=== PATIENT | female | born 1995 | race Caucasian/White ===

== ENCOUNTER 2023-02-24 06:13 | Inpatient (IN) | payer OTHER, SELFPAY ==
[2023-02-24] VITALS (47 sets, daily range): BP systolic 104–186; BP diastolic 55–120; PULSE 76–162; RESP 16–18; TEMP 36.4–37.2
[2023-02-24 07:21] LABS: Basophils Percent Auto 0.4 % (0.2-2.0); Eosinophils Absolute Auto 0.4 10^3/uL (0.0-0.7); Eosinophils Percent Auto 3.1 % (0.9-7.0); Hematocrit 35.5 % (36.0-48.0); Immature Granulocytes Abs Auto 0.06 10^3/uL (0.00-0.03); Immature Granulocytes Pct Auto 0.5 % (0.0-0.5); Lymphocytes Absolute Auto 2.4 10^3/uL (1.2-3.8); Lymphocytes Percent Auto 21.1 % (20.5-60.0); Mean Corpuscular HGB Conc 33.8 g/dL (29.9-35.2); Mean Corpuscular Hemoglobin 32.1 pg (26.7-34.0); Mean Corpuscular Volume 94.9 fL (81.0-99.0); Mean Platelet Volume 10.4 fL (9.5-13.5); Monocytes Absolute Auto 0.9 10^3/uL (0.3-0.8); Monocytes Percent Auto 7.5 % (1.7-12.0); Neutrophils Absolute Auto 7.7 10^3/uL (1.4-6.5); Neutrophils Percent Auto 67.4 % (43.0-75.0); Platelet Count 307 10^3/uL (150-450); Red Blood Count 3.74 10^6/uL (4.20-5.40); Red Cell Distribution Width 12.8 % (11.0-15.0); White Blood Count 11.4 10^3/uL (4.0-11.0)
[2023-02-24] MEDS: OXYTOCIN/0.9 % SODIUM CHLORIDE 10 UNITS/500 ML PLAST..BAG 6 UNIT IV ×2 (07:32→18:41)
[2023-02-24] MEDS: LACTATED RINGER'S SOLUTION 1,000 ML 125 ML IV ×4 (07:34→16:47)
[2023-02-24 07:37] LABS: Amphetamine Screen Urine NEGATIVE (NEGATIVE); Barbiturates Screen Urine NEGATIVE (NEGATIVE); Benzodiazepines Screen Urine NEGATIVE (NEGATIVE); Buprenorphine Screen Urine NEGATIVE (NEGATIVE); Cannabinoid Screen Urine NEGATIVE (NEGATIVE); Cocaine Screen Urine NEGATIVE (NEGATIVE); Methadone Screen Urine NEGATIVE (NEGATIVE); Methamphetamines Screen Urine NEGATIVE (NEGATIVE); Opiate Screen Urine NEGATIVE (NEGATIVE); Oxycodone Screen Urine NEGATIVE (NEGATIVE); Phencyclidine Screen Urine NEGATIVE (NEGATIVE); Tricyclic Antidepressant Urine NEGATIVE (NEGATIVE)
--- NOTE | 2023-02-24 11:14 | PC.NURSE ---
Dr Torres in and discusses epidural with pt
--- NOTE | 2023-02-24 13:18 | PM.EN ---
Event Note Event Note: to unit to assess patient. SVE 1-2/60/-3 slight posterior. Able to assess cervix, vertex, and baby is ballotable with exam. Did not attempt to AROM due to baby being ballotable. Updated Dr Nichole with patient's exam status and plan of care.
[2023-02-24] MEDS: ROPIVACAINE HCL/PF 400 MG/200 ML PREMIX 6 MG EPIDURAL (17:03)
[2023-02-24] MEDS: LIDOCAINE HCL 2% PF 100 MG/5 ML VIAL INJ (17:03)
--- NOTE | 2023-02-24 18:02 | PM.EN ---
Event Note Event Note: To room to assess patient. SVE 3-4/80/-2. AROM with sterile amni-hook with return of moderate amount of clear, odorless fluid. heart tones stable before, during and after. Patient tolerated procedure well.
[2023-02-24] MEDS: OXYTOCIN/0.9 % SODIUM CHLORIDE 20 UNITS/1,000 ML PLAST..BAG 125 UNIT IV (22:55)
--- NOTE | 2023-02-24 23:17 | PM.OBPRCVD ---
Procedure Procedure: events: Labor Induction and Labor Augmentation Induction method: per pitocin protocol Delivery augmentation: rupture of membranes Delivery monitor: external FHT and external uterine Route of delivery: Episiotomy Description: none Laceration description: labial (right labial laceration repaired ) Delivery repair: Vicryl Estimated blood loss (mL): 300 Anesthesia type: Epidural Disposition: no change Delivery date: 02/24/23 Gender: female presentation: vertex cord description: 3 Vessels, Nuchal Cord, Loose and Reduced heart rate - 1 minute: 100 bpm or Greater respiratory effort - 1 minute: Slow Respiration/Weak Cry muscle tone - 1 minute: Minimal Flexion/Extension reflex response - 1 minute: Minimal Response color - 1 minute: Pallor or Cyanosis total score - 1 minute: 5 heart rate - 5 minute: 100 bpm or Greater respiratory effort - 5 minute: Spontaneous/Strong Cry muscle tone - 5 minute: Active Movement reflex response - 5 minute: Minimal Response color - 5 minute: Bluish Hands or Feet total score - 5 minute: 8
[2023-02-25] VITALS (14 sets, daily range): BP systolic 91–138; BP diastolic 54–72; PULSE 76–97; RESP 16–18; TEMP 36.5–36.8
[2023-02-25] MEDS: IBUPROFEN 400 MG TABLET 800 MG PO ×3 (02:45→18:42)
[2023-02-25] MEDS: GLYCERIN/WITCH HAZEL PADS 1 PAD TOPICAL (03:13)
[2023-02-25] MEDS: BENZOCAINE/MENTHOL 85 GRAM SPRAY BOTTLE 1 APPLIC TOPICAL (03:13)
[2023-02-25 06:15] LABS: Basophils Absolute Auto 0.1 10^3/uL (0.0-0.1); Basophils Percent Auto 0.3 % (0.2-2.0); Eosinophils Absolute Auto 0.1 10^3/uL (0.0-0.7); Eosinophils Percent Auto 0.8 % (0.9-7.0); Hematocrit 32.7 % (36.0-48.0); Hemoglobin 10.9 g/dL (12.0-16.0); Immature Granulocytes Abs Auto 0.05 10^3/uL (0.00-0.03); Immature Granulocytes Pct Auto 0.3 % (0.0-0.5); Lymphocytes Absolute Auto 1.9 10^3/uL (1.2-3.8); Lymphocytes Percent Auto 12.1 % (20.5-60.0); Mean Corpuscular HGB Conc 33.3 g/dL (29.9-35.2); Mean Corpuscular Volume 95.9 fL (81.0-99.0); Mean Platelet Volume 9.5 fL (9.5-13.5); Monocytes Percent Auto 6.4 % (1.7-12.0); Neutrophils Absolute Auto 12.4 10^3/uL (1.4-6.5); Neutrophils Percent Auto 80.1 % (43.0-75.0); Platelet Count 268 10^3/uL (150-450); Red Blood Count 3.41 10^6/uL (4.20-5.40); Red Cell Distribution Width 12.8 % (11.0-15.0); White Blood Count 15.5 10^3/uL (4.0-11.0)
--- NOTE | 2023-02-25 08:16 | P.OBPN_ITS ---
OB - PN: Subj Subjective Patient comments: no complaints and pain well controlled [place] status: doing well Exam Constitutional Vital Signs, click to edit/add: Last Vital Signs Temp 98.1 F 02/25/23 05:30 Pulse 76 02/25/23 07:59 Resp 18 02/25/23 05:30 BP 121/72 02/25/23 07:59 O2 Del Method Room Air 02/25/23 05:30 Documenting provider has reviewed patient's vital signs: yes Common normals: no apparent distress Respiratory Common normals: normal respiratory effort and clear to auscultation bilaterally Cardio Common normals: regular rate and regular rhythm GI Common normals: Normal to inspection, nondistended, normoactive bowel sounds present Extremity Common normals: no clubbing, cyanosis or edema Results Labs Labs: Short CBC 02/25/23 Range/Units 06:09 WBC 15.5 H (4.0-11.0) 10^3/uL Hgb 10.9 L (12.0-16.0) g/dL Hct 32.7 L (36.0-48.0) % Plt Count 268 (150-450) 10^3/uL OB - PN: A/P Plan - Vaginal Delivery day: 1 Plan: routine care Time Spent with Patient Time: Total time spent is greater than 50% in coordination of care (as documented) at patient's floor/unit and/or counseling patient: Total time spent with greater than 50% in coordination of care (as documented) at patient's floor/unit and/or counseling patient: less than 15 minutes
[2023-02-25] MEDS: DOCUSATE SODIUM 100 MG CAPSULE PO (09:51)
--- NOTE | 2023-02-25 13:11 | PC.NURSE ---
LC into room for BF education. Mother states had bad experience with previous child and States I do not want to go through that again H/X of first not latching, latching poorly, excessive weight loss, low/no milk production and excessive frustration. Infant formula/bottle fed but was awful with that too Currently working with speech pathologist for speech and feeding issues, food aversion as well. Concerns validated. LC stresses importance of mother choosing feeding method but would like to offer education and support to try with this baby. Parents open to learning and interested in direct . Baby currently in open crib, in swaddler. reviewed swaddles and infant feeding cues being missed as baby cannot signal with hands when ready for feed. Discussed primitive reflexes displayed by infant to aid in feeding at the breast. LC removes swaddle from baby, baby immediately opens eyes and begins rooting on hands. To mom for latch. Demo of positioning and hold for deep latch, mom able to follow. Baby cries and searches for breast, nipples everted and short. Laid back position and use of nipple shield supports deep latch, active nursing for 12 minutes. LC notes infant skin feels cool and dark purple coloring of lower extremities, and arms, as well as color change on center back. Axillary temp 97.7, Blood sugar 76 per heel stick, resp easy. Dr Sarabia aware and visually assesses baby at the breast. Infant to feed and remain skin to skin with mom at this time.
--- NOTE | 2023-02-26 07:33 | W.PC.ACHO ---
Registration Status: ADM IN Primary Language: Sammarinese Preferred Language: Sammarinese Active Medications Generic Name Dose Route Start Last Admin Trade Name Freq PRN Reason Stop Dose Admin Acetaminophen 650 mg 02/24/23 23:23 Acetaminophen 325 Mg Tablet PO Q6H PRN Mild Pain Al Hydroxide/Mg Hydroxide 2,400 mg 02/24/23 23:23 Magnesium Hydroxide 2,400 Mg/10 Ml Oral.Susp PO Q6H PRN Dyspepsia Benzocaine/Menthol 1 applic 02/24/23 23:23 02/25/23 03:13 Benzocaine/Menthol 85 Gram [place] Bottle TOPICAL 1 applic Q2H PRN Administration Pain Diphtheria/Pertussis/Tetanus Vacc 0.5 ml 02/26/23 09:00 Adacel Diph,Pertuss(Acell),Tet Vac/Pf 0.5 Ml Adult Syringe IM 02/26/23 09:01 .ONCE ONE Docusate Sodium 100 mg 02/25/23 09:00 02/26/23 05:14 Docusate Sodium 100 Mg Capsule PO Not Given BID ELIN Ibuprofen 800 mg 02/24/23 23:30 02/26/23 01:00 Ibuprofen 400 Mg Tablet PO Not Given Q8H ELIN Lidocaine 5 ml 02/24/23 06:27 Lidocaine Viscous 2% 15 Ml Solution TOPICAL ONCE PRN Pain Lidocaine 1 ml 02/24/23 06:27 Lidocaine Hcl 1% 200 Mg/20 Ml Mdv INJ ONCE PRN Pain Measles/Mumps/Rubella Vaccine Live 0.5 ml 02/26/23 09:00 Measles,Mumps,Rubella Vacc/Pf 0.5 Ml Vial SQ 02/26/23 09:01 .ONCE ONE Ondansetron HCl 4 mg 02/24/23 06:27 Ondansetron Pf 4 Mg/2 Ml Vial IV Q6H PRN Nausea And Vomiting Ondansetron HCl 4 mg 02/24/23 06:27 Ondansetron 4 Mg Rapdis Tablet SL Q6H PRN Nausea And Vomiting Senna 17.2 mg 02/24/23 20:00 Sennosides 8.6 Mg Tablet PO QHS PRN Constipation Simethicone 80 mg 02/24/23 23:23 Simethicone 80 Mg Tab.Chew PO QID PRN Abdominal Distention Temazepam 15 mg 02/24/23 23:23 Temazepam 15 Mg Capsule PO QHS PRN Sleep Witch Hawa/Glycerin 1 pad 02/24/23 23:23 02/25/23 03:13 Glycerin/Witch [place] Pads TOPICAL 1 pad Q2H PRN Administration Pain Diet Category Date Time Status Regular Consistency Diet Diet 02/25/23 Breakfast Active Respiratory Oxygen Delivery Method Room Air Oxygen Delivery Method Room Air Cardiology Heart Sounds Regular Heart Sounds Regular Heart Sounds Regular Bowels Bowel Pattern No Bowel Movement Renal Bladder Pattern Continent
--- NOTE | 2023-02-26 07:46 | PM.OBPN ---
OB - PN: Subj Subjective Patient comments: no complaints and pain well controlled [place] status: doing well Exam Constitutional Vital Signs, click to edit/add: Last Vital Signs Temp 98.2 F 02/25/23 23:45 Pulse 86 02/25/23 23:39 Resp 18 02/25/23 23:45 BP 138/63 02/25/23 23:39 O2 Del Method Room Air 02/25/23 23:45 Documenting provider has reviewed patient's vital signs: yes Common normals: no apparent distress Respiratory Common normals: normal respiratory effort and clear to auscultation bilaterally Cardio Common normals: regular rate and regular rhythm GI Common normals: Normal to inspection, nondistended, normoactive bowel sounds present Extremity Common normals: no calf tenderness OB - PN: A/P Plan - Vaginal Delivery day: 2 Plan: routine care, discharge home and follow up 6 weeks Time Spent with Patient Time: Total time spent is greater than 50% in coordination of care (as documented) at patient's floor/unit and/or counseling patient: Total time spent with greater than 50% in coordination of care (as documented) at patient's floor/unit and/or counseling patient: less than 15 minutes
[2023-02-26 08:30] VITALS: BP 124/57; PULSE 80; RESP 14; TEMP 36.4
[2023-02-26 08:32] VITALS: BP 124/57; PULSE 80
--- NOTE | 2023-02-26 10:32 | PC.NURSE ---
Infant awaken and rooting vigorously. To football position, mom handles baby well, positioning is appropriate. Baby roots, no latch with or without shield. Moved to cross cradle position, several attempts to latch , finally latches with no sustained suck , no swallows. Shield used for latch. Discussed with parents that at this time, no successful feeds at the breast. Mom agrees stating very hard to latch and then no sucking. Baby to dad, mom instructed on use of [employer] breast pump. Able to return demo successfully. Plan to feed any obtained milk/colostrum to . Dr Sarabia aware of feeding difficulties.
[2023-02-26 16:45] VITALS: BP 130/67; PULSE 85
[2023-02-26 16:57] VITALS: BP 130/67; PULSE 85; RESP 14; TEMP 36.9
[2023-02-26] MEDS: ADACEL DIPH,PERTUSS(ACELL),TET VAC/PF 0.5 ML ADULT SYRINGE IM (18:30)
== END 2023-02-26 19:00 | disposition home or self-care (01) | DRG 807 ==
PROVIDERS: Admitting Provider Midwife; PCP Family Medicine; Visit Provider Obstetrics & Gynecology
DX: O48.0 Post-term pregnancy (principal); Z37.0 Single live birth; O70.0 First degree perineal laceration during delivery; O69.81X0 Labor and delivery complicated by cord around neck, without compression, not applicable or unspecified; Z3A.40 40 weeks gestation of pregnancy
CPT/HCPCS: 36415; 59050; 59410; 80307; 85025; 86850; 86900; 86901; 90471; 90715; 96365; 96366; 96376

== ENCOUNTER 2023-03-02 08:34 | Outpatient (OUT) | payer OTHER, SELFPAY | END 2023-03-02 11:19 | disposition home or self-care (01) | LOC: FBCO 08:36 | PROVIDERS: PCP Family Medicine; Visit Provider Midwife | DX: Z39.2 Encounter for routine postpartum follow-up (principal) ==